=== PATIENT | male | born 1985 | race Caucasian/White ===

== ENCOUNTER 2023-02-24 23:07 | Emergency (ER) | payer MEDICARE, MEDICAID ==
[~2023-02-24] VITALS: Ht 177.8 cm; Wt 75.0 kg
[2023-02-25 01:22] LABS: Basophils # (auto) 0 10 ^3/uL (0-0.2); Basophils % (auto) 0.2 % (0.0-2.0); Eosinophils # (auto) 0 10 ^3/uL (0-0.8); Hemoglobin 13.9 g/dL (13.5-17.5); Lymphocytes # (auto) 3.4 10 ^3/uL (0.4-5.4); Lymphocytes % (auto) 40.3 % (10.0-50.0); Mean Corpuscular Hemoglobin 30.1 pg (28.0-32.0); Mean Corpuscular Hgb Conc. 33.8 g/dL (32.0-36.0); Mean Corpuscular Volume 89.1 fL (80.0-100.0); Monocytes # (auto) 1.1 10 ^3/uL (0-1.3); Monocytes % (auto) 13.3 % (0.0-12.0); Neutrophils # (auto) 3.8 10 ^3/uL (1.6-8.6); Neutrophils % (auto) 46.2 % (37.0-80.0); Nucleated Red Blood Cells % 0.1 %; Red Cell Distribution Width 14.5 % (11.8-14.3); White Blood Cell 8.3 10^3/uL (4.4-10.8)
[2023-02-25 01:28] LABS: Alanine Aminotransferase 17 U/L (16-61); Albumin 3.1 g/dL (3.4-5.0); Anion Gap 5 (5-15); Aspartate Aminotransferase 15 U/L (15-37); BUN/Creatinine Ratio 18.8 (10.0-20.0); Blood Urea Nitrogen 15 mg/dL (7-18); Calcium 9.4 mg/dL (8.5-10.1); Carbon Dioxide 30 mmol/L (21-32); Chloride 104 mmol/L (98-107); GFR African American 139 mL/min; GFR Non-African American 115 mL/min; Glucose 105 mg/dL (74-106); Potassium 4.2 mmol/L (3.5-5.1); Sodium 139 mmol/L (136-145)
[2023-02-25 01:30] LABS: Alkaline Phosphatase 94 U/L (45-117); Bilirubin, Total < 0.1 mg/dL (0.2-1.0); Total Protein 8.1 g/dL (6.4-8.2)
[2023-02-25] MEDS ORDERED: SODIUM CHLORIDE 0.9% 1,000 ML IV ONE (07:15)
[2023-02-25] MEDS ORDERED: SODIUM CHLORIDE 0.9% 1,000 ML IVB ONE (07:30)
[2023-02-25] MEDS ORDERED: ONDANSETRON HCL 4 MG/2 ML VIAL IV ONE (07:30)
[2023-02-25 07:47] LABS: Magnesium 2.6 mg/dL (1.6-2.6)
[2023-02-25 07:58] LABS: Urine Bacteria NONE SEEN /hpf (None Seen); Urine Blood Negative /uL (Negative); Urine Specific Gravity 1.007 (1.001-1.035); Urine Sperm PRESENT /hpf (None Seen); Urine WBC <1 /hpf (0 - 3)
[2023-02-25] MEDS ORDERED: MAGNSOL PO ×3 (10:51→12:09)
[2023-02-25] MEDS ORDERED: LEVO500T31 PO ×3 (10:51→12:09)
[2023-02-25] MEDS ORDERED: DOCU-94 PO ×3 (10:51→12:09)
[2023-02-25] MEDS ORDERED: MAGNESIUM CITRATE SOLUTION 300 ML BTL PO ONE (12:00)
[2023-02-25 12:02] VITALS: BP 115/81
[2023-02-25] MEDS ORDERED: BISACODYL 5 MG EC TAB PO ONE (12:15)
== END 2023-02-25 11:10 | disposition home or self-care (01) ==
LOC: ER 23:07 → EDBD 23:07 → ER 02-25 11:10
DX: J18.9 Pneumonia, unspecified organism (principal); K59.00 Constipation, unspecified
CPT/HCPCS: 36415; 74176; 80053; 81001; 83690; 83735; 85025; 96361; 96374; 99285; J2405; J7030

== ENCOUNTER 2024-05-28 13:26 | Emergency (ER) | payer MEDICARE, MEDICAID ==
[~2024-05-28] VITALS: Ht 175.3 cm; Wt 77.2 kg
[~2024-05-28 13:26] MED LIST: DOCU-94 PO; LEVO500T31 PO; MAGNSOL PO
[2024-05-28] MEDS: SODIUM CHLORIDE 0.9% 1,000 ML IVB ONE (13:45)
[2024-05-28 14:36] LABS: Basophils # (auto) 0 10 ^3/uL (0-0.2); Basophils % (auto) 0.4 % (0.0-2.0); Chloride 108 mmol/L (98-107); Eosinophils # (auto) 0 10 ^3/uL (0-0.8); Eosinophils % (auto) 0.1 % (0.0-7.0); Hematocrit 42.1 % (41.0-53.0); Hemoglobin 14.2 g/dL (13.5-17.5); Lymphocytes # (auto) 3.4 10 ^3/uL (0.4-5.4); Lymphocytes % (auto) 44.1 % (10.0-50.0); Mean Corpuscular Hgb Conc. 33.6 g/dL (32.0-36.0); Mean Corpuscular Volume 89.1 fL (80.0-100.0); Monocytes # (auto) 0.7 10 ^3/uL (0-1.3); Monocytes % (auto) 8.5 % (0.0-12.0); Neutrophils # (auto) 3.6 10 ^3/uL (1.6-8.6); Neutrophils % (auto) 46.9 % (37.0-80.0); Nucleated Red Blood Cells % 0.1 %; Potassium 4.3 mmol/L (3.5-5.1); Red Blood Cells 4.73 10^6/uL (4.5-5.90); Red Cell Distribution Width 14.7 % (11.8-14.3); Sodium 141 mmol/L (136-145); White Blood Cell 7.7 10^3/uL (4.4-10.8)
[2024-05-28 14:37] LABS: Anion Gap 6 (5-15); Calcium 9.7 mg/dL (8.7-10.4); Carbon Dioxide 27 mmol/L (20-30)
[2024-05-28 14:42] LABS: BUN/Creatinine Ratio 21.2 (10.0-20.0); Blood Urea Nitrogen 18 mg/dL (9-23); Glucose 89 mg/dL (74-106)
[2024-05-28 17:48] VITALS: BP 122/72; PULSE 89; RESP 20; TEMP 98.2; O2SAT 97
[2024-05-29] MEDS ORDERED: ZOFR4T PO (10:30)
== END 2024-05-28 18:54 | disposition home or self-care (01) ==
LOC: ER 13:26 → EDBD 13:26 → ER 18:54
DX: E86.0 Dehydration (principal); R10.13 Epigastric pain; Z79.899 Other long term (current) drug therapy
CPT/HCPCS: 36415; 74176; 80048; 85025; 96360; 96361; 99284; J7030

== ENCOUNTER 2024-05-29 10:19 | Emergency (ER) | payer MEDICARE, MEDICAID ==
[~2024-05-29] VITALS: Ht 175.3 cm; Wt 75.0 kg
[2024-05-29] MEDS ORDERED: ZOFR4T PO (10:30)
[2024-05-29 10:31] VITALS: BP 152/96; PULSE 84; RESP 20; TEMP 97.3; O2SAT 98
[2024-05-29] MEDS: ONDANSETRON ODT 4 MG TAB PO ONE (10:38)
== END 2024-05-29 11:29 | disposition home or self-care (01) ==
LOC: ER 10:19 → EDBD 10:19 → ER 11:29
DX: R11.2 Nausea with vomiting, unspecified (principal); R19.7 Diarrhea, unspecified; Z79.899 Other long term (current) drug therapy
CPT/HCPCS: 99283; Q0162

== ENCOUNTER 2024-06-09 19:35 | Inpatient (IN) | payer MEDICARE, MEDICAID ==
[~2024-06-09] VITALS: Ht 177.8 cm; Wt 72.0 kg
[~2024-06-09 19:35] MED LIST changes: +DOXY-267 PO; +MET500T PO; +ZOFR4T PO
[2024-06-09 23:56] LABS: Hematocrit 40.6 % (41.0-53.0); Hemoglobin 13.6 g/dL (13.5-17.5); Mean Corpuscular Hemoglobin 30.2 pg (28.0-32.0); Mean Corpuscular Hgb Conc. 33.5 g/dL (32.0-36.0); Mean Corpuscular Volume 90.3 fL (80.0-100.0); Red Cell Distribution Width 14.6 % (11.8-14.3); White Blood Cell 7.9 10^3/uL (4.4-10.8)
[2024-06-10] VITALS (8 sets, daily range): BP systolic 112–137; BP diastolic 68–90; PULSE 64–98; RESP 16–20; TEMP 97.1–98.4; O2SAT 94–96
[2024-06-10 00:12] LABS: Acetaminophen < 2.0 UG/ML (10.0-20.0); Albumin 3.9 g/dL (3.2-4.8); Alkaline Phosphatase 71 U/L (46-116); Anion Gap 5 (5-15); Aspartate Aminotransferase 11 U/L (13-40); BUN/Creatinine Ratio 9.9 (10.0-20.0); Bilirubin, Total 0.2 mg/dL (0.2-1.0); Blood Urea Nitrogen 10 mg/dL (9-23); Calcium 9.8 mg/dL (8.7-10.4); Carbon Dioxide 27 mmol/L (20-30); Chloride 107 mmol/L (98-107); Glucose 97 mg/dL (74-106); Lipase 27 U/L (12-53); Potassium 4.1 mmol/L (3.5-5.1); Sodium 139 mmol/L (136-145); Total Protein 7.2 g/dL (5.7-8.2)
[2024-06-10 00:13] LABS: Alanine Aminotransferase < 9 U/L (7-40); Salicylate < 3.0 mg/dL (2.8-20.0)
[2024-06-10 00:14] LABS: Basophils % (manual) 0 (0.0-2.0); Blast Cells 0; Eosinophils % (manual) 0 (0-7); INR 1.11 (0.9-1.15); Metamyelocytes % 0; Myelocytes % 0; Partial Thromboplastin Time 28.8 SEC (24.5-34.5); Promyelocytes % 0; Prothrombin Time 11.7 sec (9.3-11.8); Reactive Lymphocytes 0
[2024-06-10 00:28] LABS: Blood Alcohol < 3.0 mg/dL (<10)
[2024-06-10 00:54] LABS: Band Neutrophils % (manual) 1; Lymphocytes % (manual) 57 (10.0-50.0); Monocytes % (manual) 9 (0-12); Platelet Estimate Adequate
[2024-06-10 00:55] LABS: RBC Morphology Normal
[2024-06-10 03:30] LABS: Urine Bacteria None Seen /hpf (None Seen)
[2024-06-10 03:48] LABS: Urine Blood Negative /uL (Negative); Urine Clarity Clear (Clear); Urine Color Light-Orange (Yellow); Urine Hyaline Cast FEW /lpf (0 - 2); Urine Mucus FEW (None Seen); Urine Protein, UAD 1+ (Negative); Urine Specific Gravity 1.033 (1.001-1.035); Urine Urobilinogen Normal (Negative); Urine WBC 6 /hpf (0 - 3)
[2024-06-10 03:50] LABS: Amphetamine Screen, Urine Neg (NEGATIVE); Barbiturate Scree,Urine Neg (NEGATIVE); Benzodiazephine Screen, Urine Neg (NEGATIVE); Cannabinoid Screen, Urine Neg (NEGATIVE); Cocaine Screen, Urine Neg (NEGATIVE); Opiate Scree,Urine Neg (NEGATIVE); Phencyclidine Screen, Urine Neg (NEGATIVE)
[2024-06-10] MEDS: ALBUTEROL SULF 2.5 MG/0.5ML(0.5%) NEB SOLN NEB ONE (04:37)
[2024-06-10] MEDS ORDERED: ALBUTEROL SULF 2.5 MG/0.5ML(0.5%) NEB SOLN NEB PRN (05:15)
[2024-06-10] MEDS ORDERED: ONDANSETRON HCL 4 MG/2 ML VIAL IV PRN (05:15)
[2024-06-10] MEDS ORDERED: ACETAMINOPHEN 325 MG TAB PO PRN (05:15)
[2024-06-10] MEDS: methylPREDNISolone SOD SUCC 125 MG/2 ML VL IV ONE (10:06)
[2024-06-10] MEDS: cefTRIAXone 1GM/50ML D5W 50 ML IV ONE (10:06)
[2024-06-10] MEDS: PANTOPRAZOLE 40 MG TAB PO SCH (10:06)
[2024-06-10] MEDS: LEVOTHYROXINE SODIUM 50 MCG TAB PO SCH (10:07)
[2024-06-10] MEDS: levoFLOXacin 500MG 100 ML IV ONE (10:51)
[2024-06-10] MEDS ORDERED: LORA-1121 PO (15:29)
[2024-06-10] MEDS ORDERED: BENZ1TAB6 PO (15:29)
[2024-06-10] MEDS ORDERED: POLYPOW85 PO (15:29)
[2024-06-10] MEDS ORDERED: BISM1CHW5 PO (15:29)
[2024-06-10] MEDS ORDERED: OMEP1CAP70 PO (15:29)
[2024-06-10] MEDS ORDERED: LINA290C PO (15:29)
[2024-06-10] MEDS ORDERED: LORA-483 PO (15:29)
[2024-06-10] MEDS ORDERED: LEVO150T10 PO (15:29)
[2024-06-10] MEDS ORDERED: CHOL100011 PO (15:29)
[2024-06-10] MEDS ORDERED: PANT40T PO (15:29)
[2024-06-10] MEDS ORDERED: FLUV100T15 PO (15:29)
[2024-06-10] MEDS ORDERED: CLOZ200T4 PO (15:29)
[2024-06-10] MEDS ORDERED: DOCU250C12 PO (15:29)
[2024-06-10] MEDS ORDERED: SENN-105 PO (15:29)
[2024-06-10] MEDS ORDERED: CLON0.2T PO (15:29)
[2024-06-10] MEDS ORDERED: DIVA500T13 PO (15:29)
[2024-06-10] MEDS ORDERED: SCOP1DIS9 TOP (15:29)
[2024-06-10] MEDS ORDERED: BENZ2TAB50 PO (15:29)
[2024-06-10] MEDS ORDERED: METR-344 PO (15:30)
[2024-06-11] VITALS (7 sets, daily range): BP systolic 108–129; BP diastolic 66–74; PULSE 76–94; RESP 17–21; TEMP 97.3–98.2; O2SAT 90–99
[2024-06-11 06:49] LABS: Chloride 105 mmol/L (98-107); Potassium 4.2 mmol/L (3.5-5.1); Sodium 138 mmol/L (136-145)
[2024-06-11 06:50] LABS: Anion Gap 5 (5-15); Carbon Dioxide 28 mmol/L (20-30)
[2024-06-11 06:51] LABS: Calcium 10.1 mg/dL (8.7-10.4)
[2024-06-11 06:55] LABS: Glucose 123 mg/dL (74-106)
[2024-06-11 06:56] LABS: Basophils # (auto) 0 10 ^3/uL (0-0.2); Basophils % (auto) 0.2 % (0.0-2.0); Blood Urea Nitrogen 17 mg/dL (9-23); Eosinophils # (auto) 0 10 ^3/uL (0-0.8); Hemoglobin 13.7 g/dL (13.5-17.5); Lymphocytes # (auto) 2.3 10 ^3/uL (0.4-5.4); Mean Corpuscular Hemoglobin 30.5 pg (28.0-32.0); Mean Corpuscular Hgb Conc. 34.1 g/dL (32.0-36.0); Mean Corpuscular Volume 89.3 fL (80.0-100.0); Monocytes # (auto) 0.8 10 ^3/uL (0-1.3); Monocytes % (auto) 6.7 % (0.0-12.0); Neutrophils # (auto) 9.4 10 ^3/uL (1.6-8.6); Neutrophils % (auto) 75.1 % (37.0-80.0); Nucleated Red Blood Cells % 0.2 %; Red Blood Cells 4.48 10^6/uL (4.5-5.90); Red Cell Distribution Width 14.4 % (11.8-14.3); White Blood Cell 12.6 10^3/uL (4.4-10.8)
[2024-06-11] MEDS: levoFLOXacin 500MG 100 ML IV SCH (10:22)
[2024-06-12] VITALS (7 sets, daily range): BP systolic 100–138; BP diastolic 70–78; PULSE 69–82; RESP 16–20; TEMP 97.6–97.9; O2SAT 94–95
[2024-06-12] MEDS ORDERED: LORazepam 0.5 MG TAB PO PRN (09:15)
[2024-06-12] MEDS: LACTULOSE 20Gm/30ML SOLN PO SCH (10:00)
[2024-06-12] MEDS: levoFLOXacin 500 MG TAB PO SCH (10:14)
[2024-06-12] MEDS: LORATADINE 10 MG TAB PO SCH (10:14)
[2024-06-12] MEDS: FLUoxetine HCL 20 MG CAP PO SCH (10:15)
[2024-06-12] MEDS: BENZTROPINE MESY 0.5 MG TAB PO SCH (10:15)
[2024-06-12] MEDS ORDERED: LEVO500T91 PO (11:54)
== END 2024-06-12 16:05 | disposition home or self-care (01) | DRG 391 ==
LOC: ER 19:35 → EDBD 19:35 → OVERFLOW 06-10 05:10 → WEST WING 06-10 14:46
PROVIDERS: ADMIT Internal Medicine; ATTEND Anesthesiology
DX: K52.9 Noninfective gastroenteritis and colitis, unspecified (principal); J15.69 Pneumonia due to other Gram-negative bacteria; J15.9 Unspecified bacterial pneumonia; F79 Unspecified intellectual disabilities; E55.9 Vitamin D deficiency, unspecified; K21.9 Gastro-esophageal reflux disease without esophagitis; F41.9 Anxiety disorder, unspecified; F20.9 Schizophrenia, unspecified; I10 Essential (primary) hypertension; E03.9 Hypothyroidism, unspecified; Z79.899 Other long term (current) drug therapy; R62.50 Unspecified lack of expected normal physiological development in childhood
CPT/HCPCS: 36415; 71045; 74176; 80048; 80053; 80307; 80320; 80329; 81001; 83605; 83690; 84443; 84484; 85007; 85025; 85027; 85610; 85730; 87045; 87427; 94640; 99291; G0378; J1956

== ENCOUNTER 2024-06-25 19:23 | Emergency (ER) | payer MEDICARE, MEDICAID ==
[~2024-06-25] VITALS: Ht 157.5 cm; Wt 63.0 kg
[~2024-06-25 19:23] MED LIST changes: +BENZ1TAB6 PO; +BENZ2TAB50 PO; +BISM1CHW5 PO; +CHOL100011 PO; +CLON0.2T PO; +CLOZ200T4 PO; +DIVA500T13 PO; -DOCU-94 PO; +DOCU250C12 PO; +FLUV100T15 PO; +LEVO150T10 PO; -LEVO500T31 PO; +LEVO500T91 PO; +LINA290C PO; +LORA-1121 PO; +LORA-483 PO; -MAGNSOL PO; +PANT40T PO; +POLYPOW85 PO; +SCOP1DIS9 TOP; +SENN-105 PO
[2024-06-25 21:25] LABS: Albumin 3.7 g/dL (3.2-4.8); Alkaline Phosphatase 72 U/L (46-116); Anion Gap 7 (5-15); Aspartate Aminotransferase 12 U/L (13-40); BUN/Creatinine Ratio 12.5 (10.0-20.0); Bilirubin, Total 0.2 mg/dL (0.2-1.0); Blood Urea Nitrogen 8 mg/dL (9-23); Calcium 9.2 mg/dL (8.7-10.4); Carbon Dioxide 30 mmol/L (20-30); Chloride 104 mmol/L (98-107); Glucose 90 mg/dL (74-106); Potassium 3.4 mmol/L (3.5-5.1); Sodium 141 mmol/L (136-145); Total Protein 6.5 g/dL (5.7-8.2)
[2024-06-25 21:42] LABS: Alanine Aminotransferase < 9 U/L (7-40)
[2024-06-25 21:56] LABS: Basophils # (auto) 0 10 ^3/uL (0-0.2); Basophils % (auto) 0.4 % (0.0-2.0); Eosinophils # (auto) 0 10 ^3/uL (0-0.8); Eosinophils % (auto) 0.1 % (0.0-7.0); Hematocrit 38.1 % (41.0-53.0); Hemoglobin 12.9 g/dL (13.5-17.5); Lymphocytes # (auto) 3.6 10 ^3/uL (0.4-5.4); Lymphocytes % (auto) 42.2 % (10.0-50.0); Mean Corpuscular Hemoglobin 30.5 pg (28.0-32.0); Mean Corpuscular Hgb Conc. 33.8 g/dL (32.0-36.0); Mean Corpuscular Volume 90.1 fL (80.0-100.0); Monocytes # (auto) 0.9 10 ^3/uL (0-1.3); Monocytes % (auto) 10.4 % (0.0-12.0); Neutrophils % (auto) 46.9 % (37.0-80.0); Nucleated Red Blood Cells % 0.1 %; Red Blood Cells 4.23 10^6/uL (4.5-5.90); Red Cell Distribution Width 14.8 % (11.8-14.3); White Blood Cell 8.6 10^3/uL (4.4-10.8)
[2024-06-25] MEDS ORDERED: ALBU108A5 IN (23:06)
[2024-06-25] MEDS ORDERED: METH4PAK PO (23:06)
[2024-06-26 06:13] VITALS: BP 97/62; PULSE 84; RESP 16; TEMP 97.5; O2SAT 94
== END 2024-06-26 06:50 | disposition home or self-care (01) ==
LOC: EDUNIT# 19:23 → ER 19:23 → EDBD 19:23 → ER 06-26 06:50
DX: J18.9 Pneumonia, unspecified organism (principal); J91.8 Pleural effusion in other conditions classified elsewhere
CPT/HCPCS: 36415; 71045; 80053; 85025

== ENCOUNTER 2024-07-21 10:20 | Inpatient (IN) | payer MEDICARE, MEDICAID ==
[~2024-07-21] VITALS: Ht 177.8 cm; Wt 78.0 kg
[~2024-07-21 10:20] MED LIST changes: +ALBU108A5 IN; +METH4PAK PO
[2024-07-21 11:32] LABS: Basophils # (auto) 0 10 ^3/uL (0-0.2); Basophils % (auto) 0.2 % (0.0-2.0); Eosinophils # (auto) 0 10 ^3/uL (0-0.8); Eosinophils % (auto) 0.2 % (0.0-7.0); Hematocrit 47.6 % (41.0-53.0); Hemoglobin 16.2 g/dL (13.5-17.5); Mean Corpuscular Hemoglobin 31.2 pg (28.0-32.0); Mean Corpuscular Volume 91.6 fL (80.0-100.0); Monocytes # (auto) 0.7 10 ^3/uL (0-1.3); Monocytes % (auto) 8.3 % (0.0-12.0); Neutrophils # (auto) 4.9 10 ^3/uL (1.6-8.6); Neutrophils % (auto) 56.3 % (37.0-80.0); Nucleated Red Blood Cells % 0.1 %; Platelet Count (auto) 222 10^3/uL (140-450); Red Cell Distribution Width 14.8 % (11.8-14.3); White Blood Cell 8.6 10^3/uL (4.4-10.8)
[2024-07-21 11:42] LABS: Chloride 104 mmol/L (98-107); Potassium 4.6 mmol/L (3.5-5.1); Sodium 138 mmol/L (136-145)
[2024-07-21 11:43] LABS: Anion Gap 4 (5-15); Carbon Dioxide 30 mmol/L (20-30)
[2024-07-21 11:44] LABS: Calcium 10.1 mg/dL (8.7-10.4)
[2024-07-21 11:48] LABS: Glucose 104 mg/dL (74-106)
[2024-07-21 11:49] LABS: BUN/Creatinine Ratio 15.7 (10.0-20.0); Blood Urea Nitrogen 14 mg/dL (9-23)
[2024-07-21] MEDS ORDERED: ONDANSETRON HCL 4 MG/2 ML VIAL IV PRN (18:00)
[2024-07-21] MEDS ORDERED: ACETAMINOPHEN 325 MG TAB PO PRN (18:00)
[2024-07-21] MEDS ORDERED: DOCUSATE SOD 100 MG CAP PO PRN (18:00)
[2024-07-21] MEDS ORDERED: HYDROcodone-ACET 5/325MG TAB PO PRN (18:00)
[2024-07-21] MEDS ORDERED: NITROGLYCERIN 0.4 MG SL TAB SL PRN (19:00)
[2024-07-21] MEDS ORDERED: MORPHINE SULFATE INJ 2 MG/ml SYRG IV PRN (19:00)
[2024-07-21 21:36] VITALS: PULSE 71; RESP 16; O2SAT 98
[2024-07-21] MEDS: IOHEXOL 350 MG/ML 100ML IJ ONE (21:43)
[2024-07-22] MEDS: FUROSEMIDE 40 MG/4 ML VIAL IV ONE (03:05)
[2024-07-22 05:25] LABS: Basophils # (auto) 0 10 ^3/uL (0-0.2); Basophils % (auto) 0.4 % (0.0-2.0); Eosinophils # (auto) 0 10 ^3/uL (0-0.8); Eosinophils % (auto) 0.5 % (0.0-7.0); Hematocrit 42.9 % (41.0-53.0); Hemoglobin 14.7 g/dL (13.5-17.5); Lymphocytes # (auto) 3.3 10 ^3/uL (0.4-5.4); Lymphocytes % (auto) 46.3 % (10.0-50.0); Mean Corpuscular Hgb Conc. 34.2 g/dL (32.0-36.0); Mean Corpuscular Volume 90.5 fL (80.0-100.0); Monocytes # (auto) 0.7 10 ^3/uL (0-1.3); Monocytes % (auto) 10.4 % (0.0-12.0); Neutrophils % (auto) 42.4 % (37.0-80.0); Nucleated Red Blood Cells % 0.1 %; Platelet Count (auto) 190 10^3/uL (140-450); Red Blood Cells 4.73 10^6/uL (4.5-5.90); Red Cell Distribution Width 14.8 % (11.8-14.3); White Blood Cell 7.1 10^3/uL (4.4-10.8)
[2024-07-22 05:58] LABS: Alanine Aminotransferase 10 U/L (7-40); Albumin 3.8 g/dL (3.2-4.8); Alkaline Phosphatase 77 U/L (46-116); Anion Gap 6 (5-15); Aspartate Aminotransferase 18 U/L (13-40); BUN/Creatinine Ratio 21.8 (10.0-20.0); Blood Urea Nitrogen 17 mg/dL (9-23); Calcium 9.9 mg/dL (8.7-10.4); Carbon Dioxide 28 mmol/L (20-30); Chloride 104 mmol/L (98-107); Glucose 97 mg/dL (74-106); Sodium 138 mmol/L (136-145)
[2024-07-22 05:59] LABS: Bilirubin, Total 0.4 mg/dL (0.2-1.0); Total Protein 6.9 g/dL (5.7-8.2)
[2024-07-22 07:30] VITALS: PULSE 93; RESP 16; O2SAT 94
[2024-07-22] MEDS: LEVOTHYROXINE SODIUM 50 MCG TAB PO SCH (07:40)
[2024-07-22] MEDS: PANTOPRAZOLE 40 MG/10 ML VIAL INJ IV SCH (10:10)
[2024-07-22] MEDS: FUROSEMIDE 20 MG/2 ML VIAL IV SCH (10:14)
[2024-07-22 12:17] LABS: Urine Bacteria None Seen /hpf (None Seen)
[2024-07-22 12:36] LABS: Urine Blood Negative /uL (Negative); Urine Clarity Clear (Clear); Urine Color Light-Yellow (Yellow); Urine Hyaline Cast FEW /lpf (0 - 2); Urine Protein, UAD Negative (Negative); Urine Urobilinogen Normal (Negative); Urine WBC 1 /hpf (0 - 3); Urine pH 6.5 (5.0-9.0)
[2024-07-22 19:30] VITALS: PULSE 117; RESP 20; O2SAT 93
[2024-07-22 21:04] VITALS: PULSE 117
[2024-07-22 21:20] VITALS: BP 117/73; PULSE 109; RESP 18; TEMP 98.5; O2SAT 94
[2024-07-22 21:26] VITALS: PULSE 95; RESP 18; O2SAT 94
[2024-07-22] MEDS: CLOZAPINE 200 MG PO SCH (22:00)
[2024-07-23 01:00] VITALS: BP 117/81; PULSE 93; RESP 20; TEMP 98.2; O2SAT 95
[2024-07-23 05:00] VITALS: BP 125/80; PULSE 95; RESP 20; TEMP 98; O2SAT 96
[2024-07-23 08:00] VITALS: PULSE 68; RESP 16; O2SAT 96
[2024-07-23 08:30] VITALS: BP 126/76; PULSE 95; RESP 20; TEMP 98.4; O2SAT 98
[2024-07-23 09:20] LABS: Basophils # (auto) 0 10 ^3/uL (0-0.2); Basophils % (auto) 0.4 % (0.0-2.0); Eosinophils # (auto) 0.1 10 ^3/uL (0-0.8); Eosinophils % (auto) 0.7 % (0.0-7.0); Lymphocytes % (auto) 45.5 % (10.0-50.0); Mean Corpuscular Hemoglobin 31.3 pg (28.0-32.0); Mean Corpuscular Hgb Conc. 34.8 g/dL (32.0-36.0); Mean Corpuscular Volume 89.8 fL (80.0-100.0); Monocytes # (auto) 0.9 10 ^3/uL (0-1.3); Monocytes % (auto) 10.1 % (0.0-12.0); Neutrophils # (auto) 3.8 10 ^3/uL (1.6-8.6); Neutrophils % (auto) 43.3 % (37.0-80.0); Nucleated Red Blood Cells % 0.2 %; Platelet Count (auto) 217 10^3/uL (140-450); Red Blood Cells 5.12 10^6/uL (4.5-5.90); Red Cell Distribution Width 14.4 % (11.8-14.3); White Blood Cell 8.7 10^3/uL (4.4-10.8)
[2024-07-23 10:12] LABS: INR 1.1 (0.9-1.15); Partial Thromboplastin Time 30.8 SEC (24.5-34.5); Prothrombin Time 11.6 sec (9.3-11.8)
[2024-07-23 10:31] LABS: Erythrocyte Sedimentation Rate 15 mm/hr (0-20)
[2024-07-23] MEDS: BENZTROPINE MESY 0.5 MG TAB PO SCH (10:39)
[2024-07-23 12:09] VITALS: BP 126/76; PULSE 68; RESP 12; TEMP 98.2; O2SAT 96
[2024-07-23 12:35] VITALS: BP 121/72; PULSE 90; RESP 19; TEMP 98.1; O2SAT 98
== END 2024-07-23 14:48 | disposition home or self-care (01) | DRG 187 ==
LOC: EDBD 10:20 → ER 10:32 → TELE 18:55 → TELE-WESTW 07-22 21:06 → TELE-CENTR 07-23 10:05
PROVIDERS: ADMIT Nurse Practitioner Family; ATTEND Nurse Practitioner Acute Care
DX: J90 Pleural effusion, not elsewhere classified (principal); J98.11 Atelectasis; R62.50 Unspecified lack of expected normal physiological development in childhood; F20.9 Schizophrenia, unspecified; S00.212A Abrasion of left eyelid and periocular area, initial encounter; W18.39XA Other fall on same level, initial encounter; Y93.89 Activity, other specified; Y92.89 Other specified places as the place of occurrence of the external cause; Y99.8 Other external cause status
CPT/HCPCS: 36415; 70450; 71045; 71260; 76604; 80048; 80053; 81001; 84443; 84484; 85025; 85610; 85652; 85730; 86141; G0378; J2470

== ENCOUNTER 2025-02-22 13:23 | Emergency (ER) | payer MEDICARE, MEDICAID ==
[~2025-02-22] VITALS: Ht 177.8 cm; Wt 56.0 kg
[2025-02-22 13:32] VITALS: TEMP 97.7
--- NOTE | 2025-02-22 15:04 | ED.PDOC ---
Musculoskeletal HPI Comments 39 year old male ZENIA presents to the ED with chief complaint of bilateral lower extremity pain. Patient reports that he has been experiencing bilateral lower extremity pain with associated bruising, abdominal pain, and headache. Patient relays that he wishes to have medication to treat all of his pain. EMS states patient is coming from a boarding care center and has some mental delays, but is able to answer appropriately. Patient denies any numbness, weakness, chest pain, SOB, or dizziness. Chief Complaint: Upper Extremity Time Seen by MD: 15:01 Primary Care Provider: LATRICE Reviewed Notes: Nurses Notes, Medications, Allergies Allergies: Coded Allergies: NO KNOWN ALLERGIES (Unverified , 05/28/24) Home Meds Active Scripts Methylprednisolone (Medrol Dosepak) 4 Mg Harvinder, 4 MG PO UD, #21 TAB UAD Prov:JACQUELINE CULLEN 06/25/24 Albuterol Sulfate (Albuterol Sulfate Hfa) 108 Mcg/Act Aer, 108 MCG IN TID PRN, #1 AER Prov:JACQUELINE CULLEN 06/25/24 Levofloxacin Hemihydrate (LEVAQUIN 500 MG) 500 Mg Tab, 750 MG PO DAILY for 7 Days, #11 TAB Prov:LORE BARNETT MD 06/12/24 Reported Medications Metronidazole (Metronidazole) 500 Mg Tab, 250 MG PO QID for 14 Days, #56 06/11/24 Ondansetron Odt 4MG Tab (ZOFRAN PO) 4 Mg Tb, 1 TAB PO Q8HR PRN for NAUSEA / VOMITING for 5 Days, #15 06/10/24 Polyethylene Glycol 3350 (Clearlax) 17 Gm/Scoop Pow, 17 GRAMS PO DAILY 06/10/24 Clozapine (Clozapine) 200 Mg Tab, 2 TAB PO BID 06/10/24 Scopolamine (Scopolamine) 1 Mg/3 Days Dis, 1 PATCH TOP Q3D 06/10/24 Fluvoxamine Maleate (Fluvoxamine Maleate) 100 Mg Tab, TAB PO 06/10/24 Lorazepam (ATIVAN TABLET) 0.5 Mg Tb, 1 TAB PO BID 06/10/24 Bismuth Subsalicylate (Bismuth Subsalicylate) 262 Mg Chw, 2 TAB PO QID 06/10/24 Doxycycline Monohydrate (Doxycycline Monohydrate) 100 Mg Cap, 1 CAP PO BID for 14 Days, #28 06/10/24 Cholecalciferol (Vitamin D High Potency) 1,000 Unit Cap, 1 CAP PO DAILY 06/10/24 Benztropine Mesylate (Benztropine Mesylate) 2 Mg Tab, 1 TAB PO BID 06/10/24 Benztropine Mesylate (Benztropine Mesylate) 1 Mg Tab, 1 TAB PO DAILY 06/10/24 Divalproex Sodium (Divalproex Sodium) 500 Mg Tab, 2 TAB PO BID 06/10/24 Linaclotide Base (LINZESS) 290 Mcg Cap, 1 CAP PO DAILY 06/10/24 Pantoprazole Sodium Sesquihydr (Pantoprazole Sodium) 40 Mg Tab, 1 TAB PO DAILY 06/10/24 Docusate Sodium (Docusate Sodium) 250 Mg Cap, 1 PO DAILY 06/10/24 Senna (Senna) 8.6 Mg Tab, 2 TAB PO DAILY 06/10/24 Loratadine (CLARITIN TABLET) 10 Mg Tb, 1 TAB PO DAILY 06/10/24 Clonidine Hydrochloride (Clonidine Hcl) 0.2 Mg Tab, 1 TAB PO TID 06/10/24 Levothyroxine Sodium (Levothyroxine Sodium) 150 Mcg Tab, 1 TAB PO DAILY 06/10/24 Information Source: Patient Mode of Arrival: EMS Location: Bilateral Extremity Location: Leg, Other (Head, abdomen) Timing: Hours Prehospital treatment: None Severity: Moderate Able to Move Extremity: Yes Bear Weight: Fully Pain: Moderate Mechanism: Spontaneous Circumstances: Unknown Onset of Symptoms: Spontaneous Symptoms: Pain DVT Risk Factors: NONE Last Tetanus: Unknown Past Medical History PAST MEDICAL HISTORY: Denies Surgical History: Denies all surgeries Family History Family History: No family hx of Cancer, No family hx of DM, No family hx of Heart franklin Social History Smoker: Non-Smoker Alcohol: Denies ETOH Use Drugs: Denies Drug Use Lives In: Assisted Care Constitutional: denies: chills, diaphoresis, fatigue, fever, malaise, sweats, weakness, others EENTM: denies: blurred vision, double vision, ear bleeding, ear discharge, ear drainage, ear pain, ear ringing, eye pain, eye redness, hearing loss, mouth pain, mouth swelling, nasal discharge, nose bleeding, nose congestion, nose pain, photophobia, tearing, throat pain, throat swelling, voice changes, others Respiratory: denies: cough, hemoptysis, orthopnea, SOB at rest, shortness of breath, SOB with excertion, stridor, wheezing, others Cardiovascular: denies: chest pain, dizzy spells, diaphoresis, Dyspnea on exertion, edema, irregular heart beat, left arm pain, lightheadedness, palpitations, PND, syncope, others Gastrointestinal: reports: abdominal pain; denies: abdomen distended, blood streaked bowels, constipated, diarrhea, dysphagia, difficulty swallowing, hematemesis, melena, nausea, poor appetite, poor fluid intake, rectal bleeding, rectal pain, vomiting, others Genitourinary: denies: burning, dysuria, flank pain, frequency, hematuria, incontinence, penile discharge, penile sore, pain, testicle pain, testicle swelling, urgency, others Neurological: reports: headache; denies: dizziness, fainting, left sided numbness, left sided weakness, numbness, paresthesia, pre-existing deficit, ri ght sided numbness, right sided weakness, seizure, speech problems, tingling, tremors, weakness, others Musculoskeletal: reports: others (bilat leg pain); denies: back pain, gout, joint pain, joint swelling, muscle pain, muscle stiffness, neck pain Integumetry: reports: bruises; denies: change in color, change in hair/nails, dryness, laceration, lesions, lumps, rash, wounds, others Allergic/Immunocompromised: denies: Difficulty Healing, Frequent Infections, Hives, Itching, others Hematologic/Lymphatic: denies: anemia, blood clots, easy bleeding, easy bruising, swollen glands, others Endocrine: denies: excessive hunger, excessive sweating, excessive thirst, excessive urination, flushing, intolerance to cold, intolerance to heat, unexpl ained weight gain, unexplained weight loss, others Psychiatric: denies: anxiety, bipolar disorder, depression, hopeless, panic disorder, schizophrenia, sleepless, suicidal, others All Other Systems: Reviewed and Negative Physical Exam General Appearance: Moderate Distress, Normal HEENT: Normal ENT Inspection, PERRL/EOMI Neck: Full Range of Motion, Non-Tender, Normal, Normal Inspection Respiratory: Chest Non-Tender, Lungs Clear, No Accessory Muscle Use, No Respiratory Distress, Normal Breath Sounds Cardiovascular: No Edema, No JVD, No Murmur, No Gallop, Normal Peripheral Pulses, Regular Rate/Rhythm Breast Exam: Deferred Gastrointestinal: No Organomegaly, Non Tender, No Pulsatile Mass, Normal Bowel Sounds, Soft Genitalia: Deferred Pelvic: Deferred Rectal: Deferred Extremities: No calf tenderness, Normal capillary refill, Normal inspection, Normal range of motion, Non-tender, No pedal edema Musculoskeletal : Apperance: Normal Neurologic: Alert, silver cleaner II-XII nml as Tested, No Motor Deficits, Normal Affect, Normal Mood, No Sensory Deficits Cerebellar Function: Normal Reflexes: Normal Skin: Bruises (Bilateral lower extremity), Dry, Normal Color, Warm Peripheral Pulses: 3+ Radial (R), 3+ Radial (L) Lymphatic: No Adenopathy Was a procedure done? Was a procedure done?: No Differential Diagnosis EXT Differential Diagnosis: Sprain, Strain X-Ray, Labs, Meds, VS Vital Signs Date Time Temp Pulse Resp B/P (MAP) Pulse Ox O2 Delivery O2 Flow Rate FiO2 02/22/25 13:32 97.7 70 17 90/44 (59) 95 97.7 Patient alert. Has bruises possibly from scratching of bilateral lower extremity. Vitals stable. Answering questions. Ambulating without difficulty. No sign of any injuries. Was given [place]. Was given prescription of hydrocortisone. Reviewed his history. Explained to the patient. Was told to follow up with his primary care physician. Was told to come back if there is any problem. Time of 1ST Reevaluation: 16:01 Reevaluation 1ST: Improved Patient Education/Counseling: Diagnosis, Treatment Family Education/Counseling: No Family Present Additional Information Previous visit documents reviewed: The following tests were ordered, and results were reviewed by me: None Additional Information was gathered from interviewing the following independent historians: None I reviewed and agreed with the following test results read by other providers: None I discussed treatment and results with medical personnel and: Patient Comprehensive systems review obtained and negative except for what is stated in the HPI. Departure 1 Departure Time of Disposition: 15:07 Impression: Primary Impression: Eczema Qualified Codes: L30.9 - Dermatitis, unspecified Additional Impression: Developmental delay Disposition: 01 HOME / SELF CARE / HOMELESS Condition: Good e-Prescriptions Hydrocortone (Hydrocortisone 1%) 1 Applic Ap 1 APPLIC TOP BID for 7 Days, #5 GRAMS Prov: LAVONNE SOOD MD 02/22/25 Discharged With: Self Critical Care Note Critical Care Time?: No Stability Stability form required: No Heart Score Heart Score: Heart Score Response (Comments) Value History N/A 0 EKG N/A 0 Age N/A 0 Risk Factors N/A 0 Troponin N/A 0 Total 0 I personally scribed for LAVONNE SOOD MD ([email or web address]) on 02/22/25 at 15:04. Electronically submitted by Fan Stewart ([email or web address]). LAVONNE SOOD MD Feb 22, 2025 15:04
[2025-02-22] MEDS ORDERED: HYD1TP TOP (15:09)
[2025-02-22] MEDS: HYDROcodone-ACET 5/325MG TAB PO ONE (15:40)
[2025-02-22 16:31] VITALS: BP 104/40; PULSE 68; RESP 18; O2SAT 98
== END 2025-02-22 19:41 | disposition home or self-care (01) ==
LOC: ER 13:23 → EDBD 13:23 → ER 19:41
DX: L30.9 Dermatitis, unspecified (principal); R62.50 Unspecified lack of expected normal physiological development in childhood; S80.12XA Contusion of left lower leg, initial encounter; S80.11XA Contusion of right lower leg, initial encounter; R10.9 Unspecified abdominal pain; R51.9 Headache, unspecified; Z79.899 Other long term (current) drug therapy; X58.XXXA Exposure to other specified factors, initial encounter; Y93.89 Activity, other specified; Y92.89 Other specified places as the place of occurrence of the external cause; Y99.8 Other external cause status

== ENCOUNTER 2025-05-23 01:23 | Emergency (ER) | payer MEDICARE, MEDICAID ==
[~2025-05-23] VITALS: Ht 182.9 cm; Wt 70.5 kg
[~2025-05-23 01:23] MED LIST changes: +HYD1TP TOP
--- NOTE | 2025-05-23 01:51 | ED.PDOC ---
GI ASSESSMENT HPI Comments 39-year-old male brought in by EMS from [facility] for evaluation of 2 episodes of vomiting. Patient resides at the [facility] care facility, and has history of schizophrenia, ADHD and explosive disorder. Caregivers called EMS because patient had episodes of nausea and vomiting, and advised EMS that when he experiences discomfort, he often has behavioral outbursts. Per caregivers, whenever patient vomits he becomes agitated, so they opted to call paramedics before patient developed worsening symptoms or a behavioral outburst. On arrival to ER, patient acknowledges he is having intermittent abdominal pain, and has nausea. No other coherent history is available from the patient. Chief Complaint: Nausea/Vomiting Time Seen by MD: 01:50 Primary Care Provider: LATRICE Hooper Notes: Violin Teacher Notes Allergies: Coded Allergies: NO KNOWN ALLERGIES (Unverified , 05/28/24) Home Meds Active Scripts Hydrocortone (Hydrocortisone 1%) 1 Applic Ap, 1 APPLIC TOP BID for 7 Days, #5 GRAMS Prov:LAVONNE SOOD MD 02/22/25 Methylprednisolone (Medrol Dosepak) 4 Mg Harvinder, 4 MG PO UD, #21 TAB UAD Prov:JACQUELINE CULLEN 06/25/24 Albuterol Sulfate (Albuterol Sulfate Hfa) 108 Mcg/Act Aer, 108 MCG IN TID PRN, #1 AER Prov:JACQUELINE CULLEN 06/25/24 Levofloxacin Hemihydrate (LEVAQUIN 500 MG) 500 Mg Tab, 750 MG PO DAILY for 7 Days, #11 TAB Prov:LORE BARNETT MD 06/12/24 Reported Medications Metronidazole (Metronidazole) 500 Mg Tab, 250 MG PO QID for 14 Days, #56 06/11/24 Ondansetron Odt 4MG Tab (ZOFRAN PO) 4 Mg Tb, 1 TAB PO Q8HR PRN for NAUSEA / VOMITING for 5 Days, #15 06/10/24 Polyethylene Glycol 3350 (Clearlax) 17 Gm/Scoop Pow, 17 GRAMS PO DAILY 06/10/24 Clozapine (Clozapine) 200 Mg Tab, 2 TAB PO BID 06/10/24 Scopolamine (Scopolamine) 1 Mg/3 Days Dis, 1 PATCH TOP Q3D 06/10/24 Fluvoxamine Maleate (Fluvoxamine Maleate) 100 Mg Tab, TAB PO 06/10/24 Lorazepam (ATIVAN TABLET) 0.5 Mg Tb, 1 TAB PO BID 06/10/24 Bismuth Subsalicylate (Bismuth Subsalicylate) 262 Mg Chw, 2 TAB PO QID 06/10/24 Doxycycline Monohydrate (Doxycycline Monohydrate) 100 Mg Cap, 1 CAP PO BID for 14 Days, #28 06/10/24 Cholecalciferol (Vitamin D High Potency) 1,000 Unit Cap, 1 CAP PO DAILY 06/10/24 Benztropine Mesylate (Benztropine Mesylate) 2 Mg Tab, 1 TAB PO BID 06/10/24 Benztropine Mesylate (Benztropine Mesylate) 1 Mg Tab, 1 TAB PO DAILY 06/10/24 Divalproex Sodium (Divalproex Sodium) 500 Mg Tab, 2 TAB PO BID 06/10/24 Linaclotide Base (LINZESS) 290 Mcg Cap, 1 CAP PO DAILY 06/10/24 Pantoprazole Sodium Sesquihydr (Pantoprazole Sodium) 40 Mg Tab, 1 TAB PO DAILY 06/10/24 Docusate Sodium (Docusate Sodium) 250 Mg Cap, 1 PO DAILY 06/10/24 Senna (Senna) 8.6 Mg Tab, 2 TAB PO DAILY 06/10/24 Loratadine (CLARITIN TABLET) 10 Mg Tb, 1 TAB PO DAILY 06/10/24 Clonidine Hydrochloride (Clonidine Hcl) 0.2 Mg Tab, 1 TAB PO TID 06/10/24 Levothyroxine Sodium (Levothyroxine Sodium) 150 Mcg Tab, 1 TAB PO DAILY 06/10/24 Information Source: Patient, Emergency Med Personnel Mode of Arrival: Ambulatory Timing: Minutes Duration: Since onset Quality: Aching Vomitus: Watery Pain Location: Diffuse Associated sign and symptoms: Nausea, Vomiting, Abdominal Pain Past Medical History PAST MEDICAL HISTORY: Schizophrenia Past Medical History (Other): ADHD, explosive disorder Surgical History: Denies all surgeries Family History Family History: No family hx of Cancer, No family hx of DM, No family hx of Heart franklin Social History Smoker: Non-Smoker Alcohol: Denies ETOH Use Drugs: Denies Drug Use Lives In: Assisted Care Constitutional: denies: chills, diaphoresis, fatigue, fever, malaise, sweats, weakness, others EENTM: denies: blurred vision, double vision, ear bleeding, ear discharge, ear drainage, ear pain, ear ringing, eye pain, eye redness, hearing loss, mouth pain, mouth swelling, nasal discharge, nose bleeding, nose congestion, nose pain, photophobia, tearing, throat pain, throat swelling, voice changes, others Respiratory: denies: cough, hemoptysis, orthopnea, SOB at rest, shortness of breath, SOB with excertion, stridor, wheezing, others Cardiovascular: denies: chest pain, dizzy spells, diaphoresis, Dyspnea on exertion, edema, irregular heart beat, left arm pain, lightheadedness, palpitations, PND, syncope, others Gastrointestinal: reports: nausea, vomiting; denies: abdomen distended, abdominal pain, blood streaked bowels, constipated, diarrhea, dysphagia, difficulty swallowing, hematemesis, melena, poor appetite, poor fluid intake, rectal bleeding, rectal pain, others Genitourinary: denies: burning, dysuria, flank pain, frequency, hematuria, incontinence, penile discharge, penile sore, pain, testicle pain, testicle s welling, urgency, others Neurological: denies: dizziness, fainting, headache, left sided numbness, left sided weakness, numbness, paresthesia, pre-existing deficit, right sided numbness, right sided weakness, seizure, speech problems, tingling, tremors, weakness, others Musculoskeletal: denies: back pain, gout, joint pain, joint swelling, muscle pain, muscle stiffness, neck pain, others Integumetry: denies: bruises, change in color, change in hair/nails, dryness, laceration, lesions, lumps, rash, wounds, others Allergic/Immunocompromised: denies: Difficulty Healing, Frequent Infections, Hives, Itching, others Hematologic/Lymphatic: denies: anemia, blood clots, easy bleeding, easy bruising, swollen glands, others Endocrine: denies: excessive hunger, excessive sweating, excessive thirst, excessive urination, flushing, intolerance to cold, intolerance to heat, unexplained weight gain, unexplained weight loss, others Psychiatric: denies: anxiety, bipolar disorder, depression, hopeless, panic disorder, schizophrenia, sleepless, suicidal, others Physical Exam General Appearance: No Apparent Distress HEENT: Other (Pupils and face symmetric. Moist mucous membranes.) Neck: Full Range of Motion, Normal Inspection Respiratory: Lungs Clear, No Accessory Muscle Use, No Respiratory Distress, Normal Breath Sounds Cardiovascular: No Edema, No JVD, Regular Rate/Rhythm Breast Exam: Deferred Gastrointestinal: Soft, Tenderness (Epigastric) Genitalia: Deferred Pelvic: Deferred Rectal: Deferred Extremities: Normal inspection, Normal range of motion, Non-tender, No pedal edema Neurologic: Alert, Other (Mild intermittent agitation. Ambulatory.) Cerebellar Function: NOT DONE Reflexes: NOT DONE Skin: Dry, Normal Color, Warm Lymphatic: NOT DONE Was a procedure done? Was a procedure done?: No GI differential Dx Differential Diagnosis: Appendicitis, Gastritis/PUD, Gastroenteritis, Hepatitis, Pancreatitis, UTI, Dehydration, Food Poisoning, Bacterial, Viral, Hypovolemia, Stress Ulcer X-Ray, Labs, Meds, VS Vital Signs Date Time Temp Pulse Resp B/P (MAP) Pulse Ox O2 Delivery O2 Flow Rate FiO2 05/23/25 01:36 98.2 106 16 134/85 (101) 96 98.2 Lab Test 05/23/25 01:40 Range/Units White Blood Count 12.2 H 4.4-10.8 10^3/uL Red Blood Count 5.07 4.5-5.90 10^6/uL Hemoglobin 13.0 L 13.5-17.5 g/dL Hematocrit 39.9 L 41.0-53.0 % Mean Corpuscular Volume 78.6 L 80.0-100.0 fL Mean Corpuscular Hemoglobin 25.6 L 28.0-32.0 pg Mean Corpuscular Hemoglobin Concent 32.6 32.0-36.0 g/dL Red Cell Distribution Width 16.2 H 11.8-14.3 % Platelet Count 361 140-450 10^3/uL Mean Platelet Volume 7.2 6.9-10.8 fL Neutrophils (%) (Auto) 69.6 37.0-80.0 % Lymphocytes (%) (Auto) 23.9 10.0-50.0 % Monocytes (%) (Auto) 6.2 0.0-12.0 % Eosinophils (%) (Auto) 0.0 0.0-7.0 % Basophils (%) (Auto) 0.3 0.0-2.0 % Neutrophils # (Auto) 8.5 1.6-8.6 10 ^3/uL Lymphocytes # (Auto) 2.9 0.4-5.4 10 ^3/uL Monocytes # (Auto) 0.8 0-1.3 10 ^3/uL Eosinophils # (Auto) 0 0-0.8 10 ^3/uL Basophils # (Auto) 0 0-0.2 10 ^3/uL Nucleated Red Blood Cells 0.0 % Sodium Level 141 136-145 mmol/L Potassium Level 3.7 3.5-5.1 mmol/L Chloride Level 101 98-107 mmol/L Carbon Dioxide Level 33 H 20-31 mmol/L Anion Gap 7 5-15 Blood Urea Nitrogen 18 9-23 mg/dL Creatinine 0.82 0.700-1.30 mg/dL Glomerular Filtration Rate Calc 114 >90 mL/min BUN/Creatinine Ratio 22.0 H 10.0-20.0 Serum Glucose 101 74-106 mg/dL Calcium Level 9.9 8.7-10.4 mg/dL Total Bilirubin 0.3 0.2-1.0 mg/dL Aspartate Amino Transferase (AST) 20 <34 U/L Alanine Aminotransferase (ALT) 12 7-40 U/L Alkaline Phosphatase 108 46-116 U/L Total Protein 8.0 5.7-8.2 g/dL Albumin 4.5 3.2-4.8 g/dL Lipase 29 12-53 U/L Current Medications Medications (Trade) Dose Ordered Sig/Anup Route Start Time Stop Time Status Last Admin Ondansetron HCl (Zofran Po) 4 mg ONCE ONCE PO 05/23/25 03:15 05/23/25 03:16 DC 05/23/25 03:19 Lorazepam (Ativan Tablet) 2 mg ONCE ONCE PO 05/23/25 03:15 05/23/25 03:16 DC 05/23/25 03:20 Exam: CT CT AB PEL WO CON-NO ORAL OR IV History: mid abd pain, nv Comparison Study: CT CT AB PEL WO CON-NO ORAL OR IV on DOS: 06/09/24, CT CT AB PEL WO CON-NO ORAL OR IV on DOS: 05/28/24, CT CT AB PEL WO CON-NO ORAL OR IV on DOS: 02/25/23 Technique: Multidetector spiral CT of the abdomen was performed from lung bases to pubic symphysis. Imaging was performed without IV contrast. Axial, coronal and sagittal multiplanar reformats were obtained from the axial data set by the technologist. Radiation Dose : 1. Abdomen/Pelvis: CTDIvol 6.09 mGy, DLP 349.44 mGy*cm. Findings: Evaluation of solid organs is limited due to lack of intravenous contrast use. Lung Bases: Moderate bilateral pleural effusions with moderate adjacent consolidative appearing atelectasis. Normal heart size. No pleural or pericardial effusion. Liver: The liver is normal in size. No focal lesions. Gallbladder and Biliary Tree: Unremarkable Spleen: Unremarkable Pancreas: The pancreas is grossly normal in appearance. Adrenal Glands: Unremarkable Kidneys: Kidneys are grossly normal without calculi or hydronephrosis. Bladder: Grossly unremarkable for degree of distention. Bowel: The stomach is grossly normal in appearance. Retained stool within the colon and rectum. Small bowel and colon are otherwise grossly normal in caliber and distribution. The appendix is not visualized; however, no secondary findings of acute appendicitis identified. Ascites: Absent Lymphadenopathy: No mesenteric, retroperitoneal or periportal lymphadenopathy. Abdominal Wall and Mesentery: Unremarkable. Vasculature: The visualized abdominal aorta is normal in size and caliber. Evaluation of abdominal and pelvic vessels is limited due to lack of intravenous contrast. Pelvic Organs: Unremarkable Musculoskeletal: No aggressive focal bony lesions, acute fractures or d islocation. IMPRESSION: 1. Moderate bilateral pleural effusions with moderate adjacent consolidative appearing atelectasis. 2. Retained colonic stool. Radiation optimization: All CT scans at this facility use at least one of these dose optimization techniques: automated exposure control mA and/or kV adjustment per patient size (includes targeted exams where dose is matched to clinical indication) or iterative reconstruction. X-Ray, Labs, Meds, VS Comment 39-year-old male with a history of schizophrenia, ADHD and explosive disorder brought in by EMS for evaluation of 2 episodes of vomiting Initial vitals remarkable for heart rate 106 Exam remarkable for mild epigastric tenderness to palpation Rhythm strip independently interpreted by me: Sinus tach, rate 106, no ectopy. CT abdomen and pelvis IMPRESSION: 1. Moderate bilateral pleural effusions with moderate adjacent consolidative appearing atelectasis. 2. Retained colonic stool. CBC remarkable for WBC 12.2, CMP remarkable for CO2 33, lipase normal, UA was ordered, however patient declined to provide a urine sample 1 L 0.9 normal saline IV bolus, morphine 4 mg IV, Zofran 4 mg IV and Ativan 1 mg IV were ordered for the patient, however he declined IV medications. Patient received the following treatment in the ED: Zofran ODT 4 mg p.o., Ativan 2 mg p.o. On re-evaluation, patient stated he was not having any abdominal pain and was not having nausea. Vitals were stable. Hospitalization was considered, however patient had rapid improvement of symptoms with treatment in the ED, and I no longer feel hospitalization is necessary. Of note, the patient had findings of bilateral pleural effusions with atelectasis on a prior admission here in June of 2024. He is not in any respiratory distress. Patient now appears stable for discharge with close outpatient follow-up with his primary physician. Rx Zofran, tylenol Time of 1ST Reevaluation: 01:47 Reevaluation 1ST: Unchanged Patient Education/Counseling: Diagnosis, Treatment Family Education/Counseling: No Family Present SEPSIS Sepsis Screen Date sepsis recognized/suspect: May 23, 2025 Time Sepsis recognized/suspect: 124 Recent Procedure: No On Antibiotic Therapy: No Respiratory Rate >20: No Heart Rate >90: No Temp<36 C (96.8 F) or >38.3 C: No SBP <90 or MAP <65 mmHG: No New Acute Mental Status Change: No Is the patient on CPAP, BIPAP,: No Physician Orders Urinalysis (05/23/25 01:35) Ct Ab Pel Wo Con-No Oral Or Iv (05/23/25 01:35) Vital Signs Date Time Temp Pulse Resp B/P (MAP) Pulse Ox O2 Delivery O2 Flow Rate FiO2 05/23/25 01:36 98.2 106 16 134/85 (101) 96 98.2 Laboratory Tests Test 05/23/25 01:40 White Blood Count 12.2 10^3/uL (4.4-10.8) H Medications Medications Dose Ordered Sig/Anup Route Start Time Stop Time Status Last Admin Dose Admin Lorazepam 2 mg ONCE ONCE PO 05/23/25 03:15 05/23/25 03:16 DC 05/23/25 03:20 Ondansetron HCl 4 mg ONCE ONCE PO 05/23/25 03:15 05/23/25 03:16 DC 05/23/25 03:19 Departure 1 Departure Time of Disposition: 03:47 Impression: Primary Impression: Nausea and vomiting Disposition: HOME / SELF CARE / HOMELESS Condition: Stable Additional Instructions: Your blood tests were unremarkable. You did not provide a urine sample. I have prescribed medication for nausea, vomiting and abdominal pain. Your CT scan showed pleural effusions, which were seen on a prior exam in June of 2024, and this requires no acute treatment at this time. Follow-up with your primary doctor in 1-2 days. e-Prescriptions Acetaminophen (Tylenol Extra Strength) 500 Mg Tab 1000 MG PO Q6HP PRN, #30 TAB prn pain Prov: JOSE BUITRAGO MD 05/23/25 Ondansetron Odt 4MG Tab (ZOFRAN PO) 4 Mg Tb 4 MG PO TID PRN, #30 TAB ODT TAB-DISSOLVE IN MOUTH, THEN SWALLOW Prov: JOSE BUITRAGO MD 05/23/25 Discharged With: Finishing Department Supervisor Critical Care Note Critical Care Time?: No Stability Stability form required: No Heart Score Heart Score: Heart Score Response (Comments) Value History N/A 0 EKG N/A 0 Age N/A 0 Risk Factors N/A 0 Troponin N/A 0 Total 0 I personally scribed for JOSE BUITRAGO MD ([email or web address]) on 05/23/25 at 01:51. Electronically submitted by Rodrigue Aguayo ([email or web address] I personally scribed for JOSE BUITRAGO MD ([email or web address]) on 05/23/25 at 02:06. Electronically submitted by Rodrigue Aguayo ([email or web address] I personally scribed for JOSE BUITRAGO MD ([email or web address]) on 05/23/25 at 03:31. Electronically submitted by Rodrigue Aguayo ([facility] JOSE BUITRAGO MD May 23, 2025 01:51
[2025-05-23 01:57] LABS: Basophils # (auto) 0 10 ^3/uL (0-0.2); Basophils % (auto) 0.3 % (0.0-2.0); Eosinophils # (auto) 0 10 ^3/uL (0-0.8); Hematocrit 39.9 % (41.0-53.0); Lymphocytes # (auto) 2.9 10 ^3/uL (0.4-5.4); Lymphocytes % (auto) 23.9 % (10.0-50.0); Mean Corpuscular Hemoglobin 25.6 pg (28.0-32.0); Mean Corpuscular Hgb Conc. 32.6 g/dL (32.0-36.0); Mean Corpuscular Volume 78.6 fL (80.0-100.0); Monocytes # (auto) 0.8 10 ^3/uL (0-1.3); Monocytes % (auto) 6.2 % (0.0-12.0); Neutrophils # (auto) 8.5 10 ^3/uL (1.6-8.6); Neutrophils % (auto) 69.6 % (37.0-80.0); Platelet Count (auto) 361 10^3/uL (140-450); Red Blood Cells 5.07 10^6/uL (4.5-5.90); Red Cell Distribution Width 16.2 % (11.8-14.3); White Blood Cell 12.2 10^3/uL (4.4-10.8)
[2025-05-23 02:15] LABS: Alanine Aminotransferase 12 U/L (7-40); Albumin 4.5 g/dL (3.2-4.8); Alkaline Phosphatase 108 U/L (46-116); Anion Gap 7 (5-15); Aspartate Aminotransferase 20 U/L (<34); Bilirubin, Total 0.3 mg/dL (0.2-1.0); Blood Urea Nitrogen 18 mg/dL (9-23); Calcium 9.9 mg/dL (8.7-10.4); Chloride 101 mmol/L (98-107); Glucose 101 mg/dL (74-106); Lipase 29 U/L (12-53); Potassium 3.7 mmol/L (3.5-5.1); Sodium 141 mmol/L (136-145)
[2025-05-23 02:17] LABS: Carbon Dioxide 33 mmol/L (20-31)
--- NOTE | 2025-05-23 02:46 | DVH ---
Exam: CT CT AB PEL WO CON-NO ORAL OR IV History: mid abd pain, nv Comparison Study: CT CT AB PEL WO CON-NO ORAL OR IV on DOS: 06/09/24, CT CT AB PEL WO CON-NO ORAL OR I V on DOS: 05/28/24, CT CT AB PEL WO CON-NO ORAL OR IV on DOS: 02/25/23 Technique: Multidetector spiral CT of the abdomen was performed from lung bases to pubic symphysis. I maging was performed without IV contrast. Axial, coronal and sagittal multiplanar reformats were obta ined from the axial data set by the technologist. Radiation Dose : 1. Abdomen/Pelvis: CTDIvol 6.09 mGy, DLP 349.44 mGy*cm. Findings: Evaluation of solid organs is limited due to lack of intravenous contrast use. Lung Bases: Moderate bilateral pleural effusions with moderate adjacent consolidative appearing atele ctasis. Normal heart size. No pleural or pericardial effusion. Liver: The liver is normal in size. No focal lesions. Gallbladder and Biliary Tree: Unremarkable Spleen: Unremarkable Pancreas: The pancreas is grossly normal in appearance. Adrenal Glands: Unremarkable Kidneys: Kidneys are grossly normal without calculi or hydronephrosis. Bladder: Grossly unremarkable for degree of distention. Bowel: The stomach is grossly normal in appearance. Retained stool within the colon and rectum. Small bowel and colon are otherwise grossly normal in caliber and distribution. The appendix is not visual ized; however, no secondary findings of acute appendicitis identified. Ascites: Absent Lymphadenopathy: No mesenteric, retroperitoneal or periportal lymphadenopathy. Abdominal Wall and Mesentery: Unremarkable. Vasculature: The visualized abdominal aorta is normal in size and caliber. Evaluation of abdominal a nd pelvic vessels is limited due to lack of intravenous contrast. Pelvic Organs: Unremarkable Musculoskeletal: No aggressive focal bony lesions, acute fractures or dislocation. IMPRESSION: 1. Moderate bilateral pleural effusions with moderate adjacent consolidative appearing atelectasis. 2. Retained colonic stool. Radiation optimization: All CT scans at this facility use at least one of these dose optimization renita hniques: automated exposure control mA and/or kV adjustment per patient size (includes targeted exam s where dose is matched to clinical indication) or iterative reconstruction.
[2025-05-23] MEDS: PANTOPRAZOLE 40 MG/10 ML VIAL INJ IV ONE (02:58)
[2025-05-23] MEDS: ONDANSETRON HCL 4 MG/2 ML VIAL IV ONE (02:58)
[2025-05-23] MEDS: LORazepam 2MG/ML-1ML VIAL IV ONE (02:58)
[2025-05-23] MEDS: SODIUM CHLORIDE 0.9% 1,000 ML IV ONE (02:59)
[2025-05-23] MEDS: MORPHINE SULFATE INJ 2 MG/ml SYRG IV ONE (02:59)
[2025-05-23] MEDS: ONDANSETRON ODT 4 MG TAB PO ONE (03:19)
[2025-05-23] MEDS: LORazepam 0.5 MG TAB PO ONE (03:20)
[2025-05-23] MEDS ORDERED: ACET-1304 PO (03:53)
[2025-05-23] MEDS ORDERED: ZOFR4T PO (03:53)
[2025-05-23 05:35] VITALS: BP 110/75; PULSE 102; RESP 18; TEMP 98.3; O2SAT 93
== END 2025-05-23 05:44 | disposition home or self-care (01) ==
LOC: EDBD 01:23 → ER 01:23
DX: R11.2 Nausea with vomiting, unspecified (principal); R10.84 Generalized abdominal pain; F20.9 Schizophrenia, unspecified; J90 Pleural effusion, not elsewhere classified; Z79.899 Other long term (current) drug therapy
CPT/HCPCS: 36415; 74176; 80053; 83690; 85025; 99284; Q0162

== ENCOUNTER 2025-06-24 15:30 | Emergency (ER) | payer MEDICARE, MEDICAID ==
[~2025-06-24] VITALS: Ht 182.9 cm; Wt 75.0 kg
[~2025-06-24 15:30] MED LIST changes: +ACET-1304 PO
[2025-06-24 15:40] VITALS: BP 114/71; PULSE 91; RESP 18; TEMP 98.5; O2SAT 95
--- NOTE | 2025-06-24 15:42 | ED.PDOC ---
History of Present Illness HPI Comments 39-year-old male with PMHx Schizophrenia brought in by EMS presents with a chief complaint of throat pain and abdominal pain. Per EMS, patient has been frequently calling 911 due to his girlfriend being in the hospital. Patient is coming from a [facility]. Patient states that his abdomen pain is diffuse, nonradiating, and nonexertional. Time Seen by MD: 15:35 Primary Care Provider: LATRICE Hooper Notes: Medications, Allergies Allergies: Coded Allergies: NO KNOWN ALLERGIES (Unverified , 05/28/24) Home Meds Active Scripts Acetaminophen (Tylenol Extra Strength) 500 Mg Tab, 1000 MG PO Q6HP PRN, #30 TAB prn pain Prov:JOSE BUITRAGO MD 05/23/25 Ondansetron Odt 4MG Tab (ZOFRAN PO) 4 Mg Tb, 4 MG PO TID PRN, #30 TAB ODT TAB-DISSOLVE IN MOUTH, THEN SWALLOW Prov:JOSE BUITRAGO MD 05/23/25 Hydrocortone (Hydrocortisone 1%) 1 Applic Ap, 1 APPLIC TOP BID for 7 Days, #5 GRAMS Prov:LAVONNE SOOD MD 02/22/25 Methylprednisolone (Medrol Dosepak) 4 Mg Harvinder, 4 MG PO UD, #21 TAB UAD Prov:JACQUELINE CULLEN 06/25/24 Albuterol Sulfate (Albuterol Sulfate Hfa) 108 Mcg/Act Aer, 108 MCG IN TID PRN, #1 AER Prov:JACQUELINE CULLEN 06/25/24 Levofloxacin Hemihydrate (LEVAQUIN 500 MG) 500 Mg Tab, 750 MG PO DAILY for 7 Days, #11 TAB Prov:LORE BARNETT MD 06/12/24 Reported Medications Metronidazole (Metronidazole) 500 Mg Tab, 250 MG PO QID for 14 Days, #56 06/11/24 Ondansetron Odt 4MG Tab (ZOFRAN PO) 4 Mg Tb, 1 TAB PO Q8HR PRN for NAUSEA / VOMITING for 5 Days, #15 06/10/24 Polyethylene Glycol 3350 (Clearlax) 17 Gm/Scoop Pow, 17 GRAMS PO DAILY 06/10/24 Clozapine (Clozapine) 200 Mg Tab, 2 TAB PO BID 06/10/24 Scopolamine (Scopolamine) 1 Mg/3 Days Dis, 1 PATCH TOP Q3D 06/10/24 Fluvoxamine Maleate (Fluvoxamine Maleate) 100 Mg Tab, TAB PO 06/10/24 Lorazepam (ATIVAN TABLET) 0.5 Mg Tb, 1 TAB PO BID 06/10/24 Bismuth Subsalicylate (Bismuth Subsalicylate) 262 Mg Chw, 2 TAB PO QID 06/10/24 Doxycycline Monohydrate (Doxycycline Monohydrate) 100 Mg Cap, 1 CAP PO BID for 14 Days, #28 06/10/24 Cholecalciferol (Vitamin D High Potency) 1,000 Unit Cap, 1 CAP PO DAILY 06/10/24 Benztropine Mesylate (Benztropine Mesylate) 2 Mg Tab, 1 TAB PO BID 06/10/24 Benztropine Mesylate (Benztropine Mesylate) 1 Mg Tab, 1 TAB PO DAILY 06/10/24 Divalproex Sodium (Divalproex Sodium) 500 Mg Tab, 2 TAB PO BID 06/10/24 Linaclotide Base (LINZESS) 290 Mcg Cap, 1 CAP PO DAILY 06/10/24 Pantoprazole Sodium Sesquihydr (Pantoprazole Sodium) 40 Mg Tab, 1 TAB PO DAILY 06/10/24 Docusate Sodium (Docusate Sodium) 250 Mg Cap, 1 PO DAILY 06/10/24 Senna (Senna) 8.6 Mg Tab, 2 TAB PO DAILY 06/10/24 Loratadine (CLARITIN TABLET) 10 Mg Tb, 1 TAB PO DAILY 06/10/24 Clonidine Hydrochloride (Clonidine Hcl) 0.2 Mg Tab, 1 TAB PO TID 06/10/24 Levothyroxine Sodium (Levothyroxine Sodium) 150 Mcg Tab, 1 TAB PO DAILY 06/10/24 Information Source: Patient, Emergency Med Personnel Mode of Arrival: EMS Severity: Moderate Timing: Days Duration: Since onset Prehospital treatment: None Past Medical History PAST MEDICAL HISTORY: Schizophrenia Surgical History: Denies all surgeries Family History Family History: No family hx of Cancer, No family hx of DM, No family hx of Heart franklin Social History Smoker: Non-Smoker Alcohol: Denies ETOH Use Drugs: Denies Drug Use Lives In: Assisted Care Constitutional: denies: chills, diaphoresis, fatigue, fever, malaise, sweats, weakness, others EENTM: reports: throat pain; denies: blurred vision, double vision, ear bleeding, ear discharge, ear drainage, ear pain, ear ringing, eye pain, eye redness, hearing loss, mouth pain, mouth swelling, nasal discharge, nose bleeding, nose congestion, nose pain, photophobia, tearing, throat swelling, voice changes, others Respiratory: denies: cough, hemoptysis, orthopnea, SOB at rest, shortness of breath, SOB with excertion, stridor, wheezing, others Cardiovascular: denies: chest pain, dizzy spells, diaphoresis, Dyspnea on exertion, edema, irregular heart beat, left arm pain, lightheadedness, palpitations, PND, syncope, others Gastrointestinal: reports: abdominal pain; denies: abdomen distended, blood streaked bowels, constipated, diarrhea, dysphagia, difficulty swallowing, hematemesis, melena, nausea, poor appetite, poor fluid intake, rectal bleeding, rectal pain, vomiting, others Genitourinary: denies: burning, dysuria, flank pain, frequency, hematuria, incontinence, penile discharge, penile sore, pain, testicle pain, testicle swelling, urgency, others Neurological: denies: dizziness, fainting, headache, left sided numbness, left sided weakness, numbness, paresthesia, pre-existing deficit, right sided numbness, right sided weakness, seizure, speech problems, tingling, tremors, weakness, others Musculoskeletal: denies: back pain, gout, joint pain, joint swelling, muscle pain, muscle stiffness, neck pain, others Integumetry: denies: bruises, change in color, change in hair/nails, dryness, laceration, lesions, lumps, rash, wounds, others Allergic/Immunocompromised: denies: Difficulty Healing, Frequent Infections, Hives, Itching, others Hematologic/Lymphatic: denies: anemia, blood clots, easy bleeding, easy bruising, swollen glands, others Endocrine: denies: excessive hunger, excessive sweating, excessive thirst, excessive urination, flushing, intolerance to cold, intolerance to heat, unexplained weight gain, unexplained weight loss, others Psychiatric: denies: anxiety, bipolar disorder, depression, hopeless, panic disorder, schizophrenia, sleepless, suicidal, others All Other Systems: Reviewed and Negative Physical Exam General Appearance: No Apparent Distress, Normal HEENT: Normal ENT Inspection, Pharynx Normal, TMs Normal Neck: Full Range of Motion, Non-Tender, Normal, Normal Inspection Respiratory: Chest Non-Tender, Lungs Clear, No Accessory Muscle Use, No Respiratory Distress, Normal Breath Sounds Cardiovascular: No Edema, No JVD, No Murmur, No Gallop, Normal Peripheral Pulses, Regular Rate/Rhythm Breast Exam: Deferred Gastrointestinal: No Organomegaly, Non Tender, No Pulsatile Mass, Normal Bowel Sounds, Soft Genitalia: Deferred Pelvic: Deferred Rectal: Deferred Extremities: No calf tenderness, Normal capillary refill, Normal inspection, Normal range of motion, Non-tender, No pedal edema Musculoskeletal : Apperance: Normal Neurologic: Alert, telephone order supervisor II-XII nml as Tested, No Motor Deficits, Normal Affect, Normal Mood, No Sensory Deficits Cerebellar Function: Normal Reflexes: Normal Skin: Dry, Normal Color, Warm Lymphatic: No Adenopathy Was a procedure done? Was a procedure done?: No Differential Dx Considerations may include: GASTROENTERITIS, SBO, COLITIS X-Ray, Labs, Meds, VS Vital Signs Date Time Temp Pulse Resp B/P (MAP) Pulse Ox O2 Delivery O2 Flow Rate FiO2 06/24/25 15:40 98.5 91 18 114/71 95 98.5 Lab Test 06/24/25 15:55 Range/Units White Blood Count 12.1 H 4.4-10.8 10^3/uL Red Blood Count 4.96 4.5-5.90 10^6/uL Hemoglobin 12.7 L 13.5-17.5 g/dL Hematocrit 39.7 L 41.0-53.0 % Mean Corpuscular Volume 80.1 80.0-100.0 fL Mean Corpuscular Hemoglobin 25.7 L 28.0-32.0 pg Mean Corpuscular Hemoglobin Concent 32.1 32.0-36.0 g/dL Red Cell Distribution Width 17.8 H 11.8-14.3 % Platelet Count 344 140-450 10^3/uL Mean Platelet Volume 8.0 6.9-10.8 fL Neutrophils (%) (Auto) 59.4 37.0-80.0 % Lymphocytes (%) (Auto) 32.4 10.0-50.0 % Monocytes (%) (Auto) 7.9 0.0-12.0 % Eosinophils (%) (Auto) 0.0 0.0-7.0 % Basophils (%) (Auto) 0.3 0.0-2.0 % Neutrophils # (Auto) 7.2 1.6-8.6 10 ^3/uL Lymphocytes # (Auto) 3.9 0.4-5.4 10 ^3/uL Monocytes # (Auto) 0.9 0-1.3 10 ^3/uL Eosinophils # (Auto) 0 0-0.8 10 ^3/uL Basophils # (Auto) 0 0-0.2 10 ^3/uL Nucleated Red Blood Cells 0.0 % Sodium Level 138 136-145 mmol/L Potassium Level 4.2 3.5-5.1 mmol/L Chloride Level 101 98-107 mmol/L Carbon Dioxide Level 32 H 20-31 mmol/L Anion Gap 5 5-15 Blood Urea Nitrogen 19 9-23 mg/dL Creatinine 0.68 L 0.700-1.30 mg/dL Glomerular Filtration Rate Calc 121 >90 mL/min BUN/Creatinine Ratio 27.9 H 10.0-20.0 Serum Glucose 90 74-106 mg/dL Calcium Level 10.2 8.7-10.4 mg/dL X-Ray, Labs, Meds, VS Comment SIGN OUT AMA Time of 1ST Reevaluation: 16:05 Reevaluation 1ST: Unchanged Patient Education/Counseling: Diagnosis, Treatment Family Education/Counseling: No Family Present SEPSIS Sepsis Screen Physician Orders Urinalysis (06/24/25 15:43) Vital Signs Date Time Temp Pulse Resp B/P (MAP) Pulse Ox O2 Delivery O2 Flow Rate FiO2 06/24/25 15:40 98.5 91 18 114/71 95 98.5 Laboratory Tests Test 06/24/25 15:55 White Blood Count 12.1 10^3/uL (4.4-10.8) H Departure 1 Departure Time of Disposition: 18:12 Impression: Primary Impression: Abdominal pain of unknown etiology Disposition: 07 LEFT AWOL/ELOPED Condition: Stable Critical Care Note Critical Care Time?: No Stability Stability form required: No Heart Score Heart Score: Heart Score Response (Comments) Value History N/A 0 EKG N/A 0 Age N/A 0 Risk Factors N/A 0 Troponin N/A 0 Total 0 I personally scribed for JACQUELINE CULLEN ([email or web address]) on 06/24/25 at 15:42. Electronically submitted by Freddy Alcantar ([email or web address]). JACQUELINE CULLEN Jun 24, 2025 15:42
[2025-06-24 16:23] LABS: Nucleated Red Blood Cells % 0.0 %
[2025-06-24 16:25] LABS: Hematocrit 39.7 % (41.0-53.0); Hemoglobin 12.7 g/dL (13.5-17.5); Mean Corpuscular Hemoglobin 25.7 pg (28.0-32.0); Mean Corpuscular Volume 80.1 fL (80.0-100.0)
[2025-06-24 16:35] LABS: Chloride 101 mmol/L (98-107); Potassium 4.2 mmol/L (3.5-5.1); Sodium 138 mmol/L (136-145)
[2025-06-24 16:36] LABS: Anion Gap 5 (5-15); Calcium 10.2 mg/dL (8.7-10.4)
[2025-06-24 16:41] LABS: BUN/Creatinine Ratio 27.9 (10.0-20.0); Blood Urea Nitrogen 19 mg/dL (9-23); Glucose 90 mg/dL (74-106)
[2025-06-24 16:42] LABS: Carbon Dioxide 32 mmol/L (20-31)
== END 2025-06-24 18:13 | disposition left against medical advice (07) ==
LOC: EDBD 15:30 → ER 15:30
DX: R10.9 Unspecified abdominal pain (principal); F20.9 Schizophrenia, unspecified; Z79.899 Other long term (current) drug therapy
CPT/HCPCS: 36415; 80048; 85025

== ENCOUNTER 2025-06-29 05:35 | Emergency (ER) | payer MEDICARE, MEDICAID ==
[~2025-06-29] VITALS: Ht 182.9 cm; Wt 77.1 kg
[2025-06-29 05:39] VITALS: BP 106/67; PULSE 101; RESP 16; TEMP 98.4; O2SAT 97
== END 2025-06-29 07:15 | disposition left against medical advice (07) ==
LOC: EDBD 05:35 → ER 05:35
DX: R05.9 Cough, unspecified (principal); Z53.21 Procedure and treatment not carried out due to patient leaving prior to being seen by health care provider